=== PATIENT | female | born 1945 | race Caucasian/White ===

== ENCOUNTER 2016-10-24 22:06 | Observation (INO) | payer OTHER ==
[2016-10-24] MEDS ORDERED: NS 1,000 ML IV ONE (22:30)
--- NOTE | 2016-10-24 22:37 | EDPHY ---
H & P Stated Complaint: neuro symptoms onset 10/21; R hand, R foot, R eye Time Seen by Provider: 10/24/16 22:22 HPI/ROS: CHIEF COMPLAINT: Right hand weakness HISTORY OF PRESENT ILLNESS: The patient is a 70-year-old female who comes to the emergency department complaining of right hand weakness for the last 3 days. She states that it is very mild and she has some numbness in the 4th and 5th fingers. She states that it began abruptly and has been present ever since. She states she has trouble gripping things with her hand. Then today when she woke up at 7:00 a.m. she also noticed that she had some fuzzy vision in her right eye as well as some paresthesias in her right foot. She has not had any difficulty walking. No gait abnormalities or balance problems. No headache or dizziness. No chest pain or shortness of breath. She has a history of hypertension only and is on lisinopril. She states that her son is a neurologist. She did not come sooner because she thought it was arthritis. REVIEW OF SYSTEMS: Constitutional: denies: chills, fever, recent illness, recent injury EENTM: See HPI denies: double vision, nose congestion Respiratory: denies: cough, shortness of breath Cardiac: denies: chest pain, irregular heart rate, lightheadedness, palpitations Gastrointestinal/Abdominal: denies: abdominal pain, diarrhea, nausea, vomiting, blood streaked stools Genitourinary: denies: dysuria, frequency, hematuria, pain Musculoskeletal: denies: joint pain, muscle pain Skin: denies: lesions, rash, jaundice, bruising Neurological: See HPI Hematologic/Lymphatic: denies: blood clots, easy bleeding, easy bruising Immunologic/allergic: denies: HIV/AIDS, transplant - Physical Exam General Appearance: WD/WN, mild distress Eyes, Ears, Nose, Throat Exam: PERRL/EOMI, normal ENT inspection, pharynx normal Neck: non-tender, full range of motion, supple, normal inspection. No: stiff neck, tender lateral Cardiovascular/Chest: normal peripheral pulses, regular rate, rhythm Respiratory: chest non-tender, lungs clear, normal breath sounds. No: crackles , rhonchi Gastrointestinal/Abdominal: normal bowel sounds, non tender, soft Back Exam: normal inspection Extremity: normal range of motion, non-tender, normal inspection Mental Status: alert, oriented x 3 CN's Exam: normal hearing, normal speech, PERRL, normal eye position, normal gag reflex, normal pupil position, normal speech. No: facial asymmetry, facial droop, facial paresthesias, gaze palsy, tongue deviation to R, tongue deviation to L Coordination/Gait: normal finger to nose, normal gait Motor/Sensory: normal. Very slight pronator drift on the right, 5/5 strength in all extremities. Ambulates without difficulty. DTR: tricep (R): 2+, tricep (L): 2+, knee (R): 2+, knee (L): 2+ Skin Exam: warm/dry, normal color Lymphatic: no adenopathy Source: Patient Exam Limitations: No limitations - Personal History Current Tetanus/Diphtheria Vaccine: Yes - Medical/Surgical History Hx Asthma: No Hx Chronic Respiratory Disease: No Hx Diabetes: No Hx Cardiac Disease: No Hx Renal Disease: No Hx Cirrhosis: No Hx Alcoholism: No Hx HIV/AIDS: No Hx Splenectomy or Spleen Trauma: No Other PMH: PMHx: HTN, OA, Depression. PSHx: L knee replacement - Family History Significant Family History: No pertinent family hx - Social History Smoking Status: Never smoked Alcohol Use: Sober Drug Use: None Constitutional: Initial Vital Signs Heart Rate 90 10/24/16 22:10 Respiratory Rate 17 10/24/16 22:10 Blood Pressure 174/100 H 10/24/16 22:10 O2 Sat (%) 94 10/24/16 22:10 O2 Delivery Mode Room Air Allergies/Adverse Reactions: Penicillins Allergy (Verified 03/31/15 15:54) Unknown Sulfa (Sulfonamide Antibiotics) Allergy (Verified 03/31/15 15:54) Rash Home Medications: Medication Instructions Recorded Cholecalciferol Vit D3 [Vitamin D3 1,000 units PO MOWEFR 03/25/15 (*)] Lisinopril [Zestril 5 mg (*)] 5 mg PO DAILY 03/25/15 Multivitamins [Multivitamin (*)] 1 each PO DAILY 03/25/15 [place]-3 Fatty Acids [Fish Oil 1000 1,000 mg PO DAILY 03/25/15 mg (*)] Sertraline HCl [Zoloft 50mg (*)] 50 mg PO MOFR 03/25/15 Temazepam 15 mg PO HS 03/25/15 buPROPion XL [Wellbutrin 150mg XL] 300 mg PO DAILY 03/25/15 Acetaminophen [Tylenol 325mg (*)] 325 - 650 mg PO Q4 PRN #0 tab 04/15/15 Aspirin EC [Aspirin EC 81 mg (*)] 81 mg PO BID #28 tab 04/15/15 Ferrous Sulfate [Slow Fe 140 MG 140 mg PO DAILY #30 tab.er 04/15/15 (*)] Ondansetron Odt [Zofran Odt 4 mg 4 - 8 mg PO Q6 PRN #30 tab 04/15/15 (*)] oxyCODONE IR [Oxycodone Ir (*)] 5 - 15 mg PO Q3 PRN #0 tab 04/15/15 traMADol [Ultram 50 mg (*)] 100 mg PO BID #30 tab 04/15/15 Medical Decision Making - Diagnostics Imaging Results: Imaging Impressions Head CT 10/24/16 22:31 Impression: 1. Mild age-related atrophy. 2. No hemorrhage, mass effect, or definite acute peripheral infarct. Findings discussed with Williams Ramos M.D. at 23:39 hour, 10/24/2016. Head CTA 10/24/16 22:31 Impression: Normal CT angiogram of the neck. The vertebral arteries are relatively small in caliber bilaterally. There is normal variation of the [place] of [place] as detailed above. No evidence of thrombus or stenosis. Note: All calculations were performed using NASCET criteria. Findings discussed with Williams Ramos M.D. at 23:53 hour, 10/24/2016. Neck CTA 10/24/16 22:31 Impression: Normal CT angiogram of the neck. The vertebral arteries are relatively small in caliber bilaterally. There is normal variation of the [place] as detailed above. No evidence of thrombus or stenosis. Note: All calculations were performed using NASCET criteria. Findings discussed with Williams Ramos M.D. at 23:53 hour, 10/24/2016. Imaging: Discussed imaging studies w/ housecalls nurse Radiologist ED Course/Re-evaluation: Stroke alert not initiated because patient is not tPA candidate because of duration of symptoms and NIH stroke score of 1. Discussed the CT and lab results. Believe that the patient has had a very mild stroke. NIH stroke score 1 which has been unchanged for 3 days. I have consulted the hospitalist service who will admit. She would likely benefit from an MRI tomorrow and Neurology consult and rehabilitation consult. I spoke with Dr. Hernandez who will admit the medical service. Differential Diagnosis: Partial list of the Differential diagnosis considered include but were not limited to; CVA, neuropathy, and although unlikely based on the history and physical exam, I also considered glaucoma, infection, MS, Guillain-[place]. - Data Points Laboratory Results: Laboratory Results 10/24/16 20:40 10/24/16 20:40 10/24/16 10/24/16 10/24/16 20:40 20:40 20:40 WBC 5.07 10^3/uL 10^3/uL (3.80-9.50) RBC 4.66 10^6/uL 10^6/uL (4.18-5.33) Hgb 14.2 g/dL g/dL (12.6-16.3) Hct 40.8 % % (38.0-47.0) MCV 87.6 fL fL (81.5-99.8) MCH 30.5 pg pg (27.9-34.1) MCHC 34.8 g/dL g/dL (32.4-36.7) RDW 12.2 % % (11.5-15.2) Plt Count 229 10^3/uL 10^3/uL (150-400) MPV 9.9 fL fL (8.7-11.7) Neut % (Auto) 46.8 % % (39.3-74.2) Lymph % (Auto) 39.8 % % (15.0-45.0) [place] % (Auto) 7.7 % % (4.5-13.0) Eos % (Auto) 4.1 % % (0.6-7.6) Baso % (Auto) 1.4 % % (0.3-1.7) Nucleat RBC Rel Count 0.0 % % (0.0-0.2) Absolute Neuts (auto) 2.37 10^3/uL 10^3/uL (1.70-6.50) Absolute Lymphs (auto) 2.02 10^3/uL 10^3/uL (1.00-3.00) Absolute Monos (auto) 0.39 10^3/uL 10^3/uL (0.30-0.80) Absolute Eos (auto) 0.21 10^3/uL 10^3/uL (0.03-0.40) Absolute Basos (auto) 0.07 10^3/uL 10^3/uL (0.02-0.10) Absolute Nucleated RBC 0.00 10^3/uL 10^3/uL (0-0.01) Immature Gran % 0.2 % % (0.0-1.1) Immature Gran # 0.01 10^3/uL 10^3/uL (0.00-0.10) PT 12.0 SEC SEC (12.0-15.0) INR 0.90 (0.83-1.16) Sodium 137 mEq/L mEq/L (134-144) Potassium 3.9 mEq/L mEq/L (3.5-5.2) Chloride 103 mEq/L mEq/L (97-110) Carbon Dioxide 23 mEq/l mEq/l (22-31) Anion Gap 11 mEq/L mEq/L (8-16) BUN 15 mg/dL mg/dL (7-23) Creatinine 0.6 mg/dL mg/dL (0.6-1.0) Estimated GFR > 60 Glucose 96 mg/dL mg/dL (70-100) Calcium 10.0 mg/dL mg/dL (8.5-10.4) Medications Given: Discontinued Medications Sodium Chloride (Ns) 1,000 mls @ 0 mls/hr IV ONCE ONE PRN Reason: Wide Open Stop: 10/24/16 22:31 Last Admin: 10/24/16 22:46 Dose: 1,000 mls Departure - Departure Disposition: [facility] Acute Clinical Impression: Acute ischemic stroke Condition: Fair
[2016-10-24 22:53] LABS: % IMMATURE GRANULYOCYTES 0.2 % (0.0-1.1); ABSOLUTE IMMATURE GRANULOCYTES 0.01 10^3/uL (0.00-0.10); ADD DIFF? NO; ADD MORPH? NO; ADD SCAN? NO; ATYPICAL LYMPHOCYTE FLAG 10 (0-99); FRAGMENT RBC FLAG 0 (0-99); HEMATOCRIT 40.8 % (38.0-47.0); HEMOGLOBIN 14.2 g/dL (12.6-16.3); LEFT SHIFT FLG 0 (0-99); LIPEMIA HEMOLYSIS FLAG 90 (0-99); MEAN CELL HEMOGLOBIN 30.5 pg (27.9-34.1); MEAN CELL HEMOGLOBIN CONCENTR. 34.8 g/dL (32.4-36.7); MEAN CELL VOLUME 87.6 fL (81.5-99.8); MEAN PLATELET VOLUME 9.9 fL (8.7-11.7); PLATELET CLUMPS FLAG 0 (0-99); PLATELET COUNT 229 10^3/uL (150-400); RED BLOOD CELL COUNT 4.66 10^6/uL (4.18-5.33); RED CELL DISTRIBUTION WIDTH 12.2 % (11.5-15.2)
[2016-10-24] MEDS ORDERED: IOPAMIDOL (ISOVUE 370) 100 ML BTL IV ONE (22:59)
[2016-10-24 23:07] LABS: INR 0.9 (0.83-1.16)
[2016-10-24 23:09] LABS: ANION GAP 11 mEq/L (8-16); CARBON DIOXIDE 23 mEq/l (22-31); CHLORIDE 103 mEq/L (97-110); CREATININE 0.6 mg/dL (0.6-1.0); GLOMERULAR FILTRATION RATE > 60; GLUCOSE 96 mg/dL (70-100); POTASSIUM 3.9 mEq/L (3.5-5.2); SODIUM 137 mEq/L (134-144)
--- NOTE | 2016-10-25 01:27 | PDGENHP ---
History and Physical - Chief Complaint R hand weakness - History of Present Illness Patient is a 70 year old female with hypertension, osteoarthritis, depression who presents to the ED with complaint of R hand weakness, as well as R foot numbness. 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 At first she thought her symptoms were related to her arthritis and did not investigate this symptom further. This morning, she then woke up feeling slightly woozy and describes a transient episode of a disturbance/blurriness in her vision. This resolved within minutes. And then this evening, she also began feeling a paresthesia in her R foot, not associated with difficulty ambulating or trauma/fall. Given these constellation of symptoms, she called her son (who is a Neurologist) and he recommended she go to the ED for further evaluation. There was no associated headache, neck pain , dysarthria or dysphonia with any of her symptoms. She also denies any recent falls, fevers, chills, headache, chest pain, palpitations, abd pain, n/v/d or dysuria. She reports low exercise tolerance at baseline, but does walk once weekly. On arrival to the ED, patient was afebrile and hemodynamically stable. Labs, including cbc, bmp and coags were wnl. CT head without contrast did not show any acute abnormalities and CT angio head/neck were within normal limits. She was then admitted to the hospitalist service for further evaluation. History Information - Allergies/Home Medication List Allergies/Adverse Reactions: Penicillins Allergy (Verified 03/31/15 15:54) Unknown Sulfa (Sulfonamide Antibiotics) Allergy (Verified 03/31/15 15:54) Rash Home Medications: Cholecalciferol Vit D3 [Vitamin D3 (*)] 1,000 units PO MOWEFR 03/25/15 [Last Taken 04/12/15] Lisinopril [Zestril 5 mg (*)] 5 mg PO DAILY 03/25/15 [Last Taken 04/12/15] Multivitamins [Multivitamin (*)] 1 each PO DAILY 03/25/15 [Last Taken 04/12/15] [place]-3 Fatty Acids [Fish Oil 1000 mg (*)] 1,000 mg PO DAILY 03/25/15 [Last Taken 04/12/15] Sertraline HCl [Zoloft 50mg (*)] 50 mg PO MOFR 03/25/15 [Last Taken 04/13/15 05: 00] Temazepam 15 mg PO HS 03/25/15 [Last Taken 04/12/15] buPROPion XL [Wellbutrin 150mg XL] 300 mg PO DAILY 03/25/15 [Last Taken 04/12/15 ] I have personally reviewed and updated: family history, medical history, social history, surgical history - Past Medical History Additional medical history: hypertension. osteoarthritis. depression - Surgical History Additional surgical history: bilateral carpal tunnel. . 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 Review of Systems ROS: 10pt was reviewed & negative except for what was stated in HPI & below Physical Exam Temp Pulse Resp BP Pulse Ox 90 18 137/84 H 94 10/25/16 00:00 10/25/16 00:00 10/25/16 00:00 10/25/16 00:00 Constitutional: no apparent distress, appears nourished, not in pain Eyes: PERRL, anicteric sclera, EOMI Ears, Nose, Mouth, Throat: moist mucous membranes, hearing normal, ears appear normal, no oral mucosal ulcers Cardiovascular: regular rate and rhythym, no murmur, rub, or gallop, pulses symmetric bilaterally, No JVD, No edema Peripheral Pulses: 2+: dorsalis-pedis (R), dorsalis-pedis (L) Respiratory: no respiratory distress, no rales or rhonchi, clear to auscultation Gastrointestinal: normoactive bowel sounds, soft, non-tender abdomen, no palpable masses, No tenderness, No guarding, No rebound Genitourinary: no bladder fullness, no bladder tenderness Skin: warm, normal color, no rashes or abrasions, no fluctuance, no induration, No mottled Musculoskeletal: full muscle strength, no muscle tenderness, normal joint ROM, no joint effusions Neurologic: AAOx3, sensation intact bilaterally, pronator drift (very slight drift in R upper extremity), CN II-XII Intact, other (isometric strength 5/5 in all extremities), No facial droop Psychiatric: interacting appropriately, not anxious, not encephalopathic, thought process linear Lab Data & Imaging Review 10/24/16 20:40 10/24/16 20:40 WBC 5.07 10^3/uL (3.80-9.50) 10/24/16 20:40 RBC 4.66 10^6/uL (4.18-5.33) 10/24/16 20:40 Hgb 14.2 g/dL (12.6-16.3) 10/24/16 20:40 Hct 40.8 % (38.0-47.0) 10/24/16 20:40 MCV 87.6 fL (81.5-99.8) 10/24/16 20:40 MCH 30.5 pg (27.9-34.1) 10/24/16 20:40 MCHC 34.8 g/dL (32.4-36.7) 10/24/16 20:40 RDW 12.2 % (11.5-15.2) 10/24/16 20:40 Plt Count 229 10^3/uL (150-400) 10/24/16 20:40 MPV 9.9 fL (8.7-11.7) 10/24/16 20:40 Neut % (Auto) 46.8 % (39.3-74.2) 10/24/16 20:40 Lymph % (Auto) 39.8 % (15.0-45.0) 10/24/16 20:40 [place] % (Auto) 7.7 % (4.5-13.0) 10/24/16 20:40 Eos % (Auto) 4.1 % (0.6-7.6) 10/24/16 20:40 Baso % (Auto) 1.4 % (0.3-1.7) 10/24/16 20:40 Nucleat RBC Rel Count 0.0 % (0.0-0.2) 10/24/16 20:40 Absolute Neuts (auto) 2.37 10^3/uL (1.70-6.50) 10/24/16 20:40 Absolute Lymphs (auto) 2.02 10^3/uL (1.00-3.00) 10/24/16 20:40 Absolute Monos (auto) 0.39 10^3/uL (0.30-0.80) 10/24/16 20:40 Absolute Eos (auto) 0.21 10^3/uL (0.03-0.40) 10/24/16 20:40 Absolute Basos (auto) 0.07 10^3/uL (0.02-0.10) 10/24/16 20:40 Absolute Nucleated RBC 0.00 10^3/uL (0-0.01) 10/24/16 20:40 Immature Gran % 0.2 % (0.0-1.1) 10/24/16 20:40 Immature Gran # 0.01 10^3/uL (0.00-0.10) 10/24/16 20:40 PT 12.0 SEC (12.0-15.0) 10/24/16 20:40 INR 0.90 (0.83-1.16) 10/24/16 20:40 Sodium 137 mEq/L (134-144) 10/24/16 20:40 Potassium 3.9 mEq/L (3.5-5.2) 10/24/16 20:40 Chloride 103 mEq/L (97-110) 10/24/16 20:40 Carbon Dioxide 23 mEq/l (22-31) 10/24/16 20:40 Anion Gap 11 mEq/L (8-16) 10/24/16 20:40 BUN 15 mg/dL (7-23) 10/24/16 20:40 Creatinine 0.6 mg/dL (0.6-1.0) 10/24/16 20:40 Estimated GFR > 60 10/24/16 20:40 Glucose 96 mg/dL (70-100) 10/24/16 20:40 Calcium 10.0 mg/dL (8.5-10.4) 10/24/16 20:40 Visualized and Interpreted imaging results: Yes Interpretation: CT Head wo contrast: no acute intracranial abnormalities, no hemorrhage, infarct or edema. CT angio head/neck: normal vasculature of head/ neck Assessment & Plan Assessment: Patient is a 70 year old female with HTN, OA, depression who presents to the ED with 3 days of decreased violin mechanic strength in her R hand, as well as new paresthesias in her R lower extremity. Symptoms are concerning for a subacute CVA vs TIA, initial ED work up is unrevealing. Plan: # R hand weakness, RLE paresthesia Symptoms are concerning for possible CVA vs TIAs, differential also includes peripheral neuropathy. She is not a candidate for tPA as symptoms have been present for 3 days and her NIH stroke scale is 0-1 on presentation (faint RUE drift). CT head without contrast, CT angio head/neck do not reveal any acute pathology. Will check EKG, TTE, MRI brain, monitor on telemetry overnight. Will also check lipid panel, TSH, monitor neuro checks overnight and obtain neuro consult in am. # chronic hypertension BP slightly elevated on presentation. Will allow for permissive hypertension in setting of possible CVA. # chronic depression Stable, confirm and continue home meds. # chronic osteoarthritis No acute pain, will confirm and cont home pain meds. # dispo: admit to observation for CVA work up # gen: Cardiac diet Full code
--- NOTE | 2016-10-25 01:39 | CPEKG ---
Heart Rate: 85 RR Interval: 706 P-R Interval: 184 QRSD Interval: 76 QT Interval: 380 QTC Interval: 452 P Stirling: 70 QRS Stirling: -9 T Wave Stir[place]: 52 EKG Severity - ABNORMAL ECG - EKG Impression: SINUS RHYTHM EKG Impression: PROBABLE LEFT ATRIAL ABNORMALITY EKG Impression: PROBABLE LEFT VENTRICULAR HYPERTROPHY EKG Impression: ANTERIOR Q WAVES, POSSIBLY DUE TO LVH EKG Impression: LEFTWARD AXIS Electronically Signed By: Gael Johnson 28-Oct-2016 09:16:02
[2016-10-25 05:54] LABS: ANION GAP 11 mEq/L (8-16); CARBON DIOXIDE 22 mEq/l (22-31); CHLORIDE 107 mEq/L (97-110); CHOLESTEROL 197 mg/dL (140-220); CHOLESTEROL/HDL RATIO 2.77 RATIO (1.00-4.44); CREATININE 0.5 mg/dL (0.6-1.0); GLOMERULAR FILTRATION RATE > 60; GLUCOSE 88 mg/dL (70-100); HIGH DENSITY LIPOPROTEIN 71 mg/dL (40-85); LDL/HDL RATIO 1.39 RATIO (1.00-3.22); LOW DENSITY LIPOPROTEIN 99 mg/dL (80-100); NON-HIGH DENSITY LIPOPROTEIN 126 mg/dL (90-129); POTASSIUM 4.5 mEq/L (3.5-5.2); SODIUM 140 mEq/L (134-144); SPECIMEN HEMOLYSIS 107; TRIGLYCERIDE 135 mg/dL (35-135); VERY LOW DENSITY LIPOPROTEINS 27 mg/dL (8-25)
[2016-10-25 08:32] VITALS: BP 157/89; PULSE 73; RESP 14; TEMP 98.1; O2SAT 94
--- NOTE | 2016-10-25 08:46 | PDCONSULT ---
[facility] Note: HOSPITAL NEUROLOGY CONSULT REQUESTING: Arianna Hernandez DO REASON: hand weakness, foot numbness HPI: This is a 70-year-old right-handed woman with a history of hypertension, osteoarthritis and depression who presents to our facility for new right hand weakness, right foot numbness and she also mentions visual acuity disturbance in the right eye. Patient states 3 days prior to presentation she started to notice that the right hand seemed weaker than usual. She was having difficulty with fine motor tasks such as buttoning clothing. She thought this may be related to her arthritis, so she delayed evaluation. One day prior to presentation, the patient awoke feeling lightheaded. She states that this sensation of lightheadedness persisted throughout the day. She was also noting that the vision out of the right eye only seemed less sharp than usual. She described the symptoms to her family, and they encouraged her to go to the emergency department. She states that the weakness in her hand and the numbness in the right foot have resolved, but she still feels that the visual acuity of the right eye is not as sharp. She was not experiencing any chest pain, shortness of breath or palpitations during any of these events. She has no prior history of stroke or TIA. She was not experiencing any speech/language disturbance, vestibular symptoms/dizziness, gait disturbance. She did endorse a mild bifrontal headache on the morning she awoke with a lightheadedness. She has had no fevers or meningeal signs/symptoms. No nausea, photophobia or phonophobia. No recent illnesses and no recent changes in her medications. When she presented to our emergency department, she had a CT of the head as well as CT angiogram of the head and neck which did not reveal any acute pathology. She was not deemed a thrombolytic or interventional candidate due to symptoms being of an extended duration. Her general medical evaluation including metabolic and infectious screening have been unrevealing. ROS: As per the HPI, otherwise a complete 12 point ROS was performed and is negative ALLERGIES AND MEDS: As recorded in the EMR - reviewed and reconciled PFSH: As per the intake H&P by Dr. Hernandez from yesteray EXAM: VS reviewed in EMR GEN: WDWN laying in NAD HEENT: NCAT, sclera anicteric, conjunctiva not injected, MMM, oropharynx clear, no scalp tenderness NECK: supple, nontender, no meningismus CV: RRR s1 s2 wo m/r/c/g. Carotid pulses 2+ wo bruit EXT: hands show some slight ulnar deviation of the fingers NEURO: (NIHSS 1 - RUE drift) MS: awake, alert, oriented to all spheres. Speech nondysarthric. No language disturbance. Follows commands. Attends to both sides. Recent/remote memory grossly intact. Mood euthymic. Good fund of knowledge. CN: pupils 3mm round and reactive. Fundi with sharp discs. VFF. Primary gaze centered. Full ocular motility. VA 20/30 -1 OU (corrected). Facial sensation preserved. Face symmetric. Hearing grossly intact to finger rub. Palatoglossal movements intact. Shoulder shrug and head turn strong. MOTOR: normal bulk/tone. No adventitial movements. Trace weakness in the proximal muscle groups symmetrically, but otherwise full power throughout. Some very subtle drift of the RUE without pronation. SENSORY: LT/PP intact throughout and symmetric. No extinction. COORD: no ataxia FN/HS. Akbar preserved. REFLEX: plantars down. No clonus. Absent ankle jerks, other DTRs 1/4. GAIT: deferred to PT safety evaluation DATA REVIEW: Labs reviewed in EMR PERSONALLY INTERPRETED RESULTS AND DATA: CT head wo - mild global volume loss, no acute pathology/changes CTA head/neck - patent intracranial/extracranial vasculature IMPRESSION AND RECOMMENDATIONS: // RIGHT HAND WEAKNESS - RESOLVED // RIGHT FOOT NUMBNESS - RESOLVED // RIGHT EYE VISUAL ACUITY DISTURBANCE Patient with 3 days of right hand weakness, 1 day of right foot numbness and 1 day of right eye subjective VA disturbance and 1 day of lightheadedness. Doesn' t fit one single localization, especially with the monocular visual disturbance (subjective, not objectively apparent on exam). Could represent a multifocal process from proximal cardioembolism (? lightheadedness from arrhythmia), or perhaps another infiltrative multifocal process. Given duration of symptoms, we should be able to visualize acute ischemic change on MRI if this is indeed a vascular phenomenon. But, given the progressive nature of symptoms and the lack of single localization, this could represent a nonneurologic phenomenon. - MRI brain wo - TTE - cont ASA 81mg for now - cont atorvastatin for now - maintain normotension - lipid panel pending - monitor on tele - metabolic/cardiac/infectious screening and supportive measures per primary team - cont routine neuro checks and vitals monitoring
[2016-10-25] MEDS ORDERED: ATORVASTATIN CALCIUM 40 MG TAB PO SCH (09:00)
[2016-10-25] MEDS ORDERED: ASPIRIN 81 MG CHEWABLE TAB PO SCH (09:00)
--- NOTE | 2016-10-25 10:49 | ECHO ---
[id number] + + [address] : : [place] [address] : : [phone] + + Adult Echocardiographic Report + ------+ :Name: LINDA ARROYO SStudy Date: 10/25/2016 08:11 AM : : Hospital Admission Number: [id number] Locatio n: 143: :: 1945 Gender: Female Height: 62 in : :Age: 70 yrs Race: WH Weight: 150 lb : :Reason For Study: source of emboli : : BSA: 1.7 meters 2 : :History: tia vs cva : + ------+ MMode/2D Measurements \T\ Calculations IVSd: 0.70 cm RVDd: 2.4 cm FS: 44.7 % Ao root diam: LVPWd: 0.86 cm LVIDd: 3.2 cm EDV(Teich): 2.3 cm LVIDs: 1.8 cm 41.6 ml ESV(Teich): 9.4 ml EF(Teich): 77.3 % LVLd ap4: 8.1 cm SV(MOD-sp4): EDV(MOD-sp4): 62.0 ml 83.0 ml LVLs ap4: 6.4 cm ESV(MOD-sp4): 21.0 ml EF(MOD-sp4): 74.7 % Normal Measurement Values: + + :LVIDd (3.5-5.7cm) IVSd (0.6-1.1cm) LVPWd (0.6-1.1cm) Aortic Root (2.0-3.7cm)Left Atrium (1.5-4.0cm): :LV Vol(d) (76-115ml) LV Vol(s) (29-48ml) Ejec Fraction (50-65%)PV Hayder (0.6- 1.2m/s) TV Hayder (0.4-1.0m/s) : :MV E Hayder (0.8-1.0m/s)MV A Hayder (0.3-1.0m/s)LVOT Hayder (0.7-1.2m/s) Asc Ao Hayder ( 0.9-1.8m/s) : + + Doppler Measurements \T\ Calculations MV E max hayder: Ao V2 max: LV V1 max: PA V2 max: 56.3 cm/sec 103.0 cm/sec 98.7 cm/sec 110.0 cm/sec MV A max hayder: Ao max P.2 mmHgLV V1 max PG: PA max P.8 mmHg 88.4 cm/sec 3.9 mmHg MV E/A: 0.64 MV dec time: 0.25 sec Left Ventricle The left ventricle is normal in size and function. There is normal left ventricular wall thickness. Ejection Fraction = 75%. The left ventricular ejection fraction is calculated at 77.3 %. There is Doppler evidence for diastolic dysfunction. No regional wall motion abnormalities noted. Right Ventricle The right ventricle is normal in size and function. Atria The left atrial size is normal. Right atrial size is normal. Mitral Valve The mitral valve is normal in structure and function. There is no mitral valve stenosis. There is trace mitral regurgitation. Tricuspid Valve The tricuspid valve is normal in structure and function. There is no tricuspid stenosis. No tricuspid regurgitation. Aortic Valve The aortic valve is normal in structure and function. The aortic valve is trileaflet. There is no aortic stenosis. There is no aortic insufficiency. Pulmonic Valve The pulmonic valve is not well visualized. Great Vessels The aortic root is normal size. Pericardium/Pleural There is no pericardial effusion. Conclusion A two-dimensional transthoracic echocardiogram with M-mode and Doppler was performed. There is no obvious source of embolus identified. If one is highly clinically suspected, then transesophageal echocardiography should be considered. (1) Left ventricular systolic ejection fraction was normal (75%) - normal wall motion (2) No left ventricular hypertrophy (3) Diastolic dysfuntion was present (4) Normal right ventricular size and function (5) Normal atrial dimensions (6) Physiologic mitral regurgitation (7) Trileaflet aortic valve without sclerosis or appreciable insufficiency (8) Grossly normal tricuspid valve - RVSP was not assessed (poor windows) (9) Poor visualization of the pulmonic valve (10) No comparison echocardiograms Final Reading Physician: Rema Riggins signed on 10/25/2016 10:47 AM Ordering Physician: Arianna Hernandez Performed By: Mattie Turner
--- NOTE | 2016-10-25 13:55 | GDS ---
[f rep st] DISCHARGE SUMMARY DISCHARGE DIAGNOSES: Resolved right hand weakness, right foot numbness and right eye visual disturb ance of unclear etiology. CONSULTANTS: Dr. Williams De León, neurology. HOSPITAL COURSE BY PROBLEM: Right hand weakness, right foot numbness, right eye visual disturbance: The patient was placed on observation due to concerns for CVA versus TIA. A CTA of the head and n marcela was done, as well as a brain MRI, that did not reveal any signs of stroke or vascular disturbanc e. An echocardiogram was done, that also did not demonstrate any cardiogenic source for her symptom s. Upon discussion with Dr. De León, the distribution of her symptoms would be atypical for any vascula r distribution. At the time of discharge, her symptoms have resolved. I suspect her right-sided ar m and leg symptoms could possibly be due to compression neuropathy from the position in which she wa s sleeping. PHYSICAL EXAMINATION: VITAL SIGNS: On day of discharge, blood pressure 157/89, pulse of 73, respir atory rate 14, O2 saturation 94% on room air. Temperature afebrile. GENERAL: No acute distress. HEART: S1, S2. LUNGS: Clear. ABDOMEN: Soft. EXTREMITIES: No edema. NEUROLOGIC: Cranial nerves 2-12 grossly intact. No focal motor or sensory deficits. There is no pronator drift. Muscle stre ngth 5/5 bilateral flexion and extension in the upper extremity. Value Analysis Coordinator strength is symmetric and 5/5 . DISCHARGE MEDICATIONS: Please refer to discharge medication reconciliation in [facility] for details. DISCHARGE INSTRUCTIONS: The patient will be discharged from the hospital where she should follow up with her primary care provider in 1-2 weeks for routine hospital followup. She should continue to have monitoring of her blood pressure to ensure she is at goal. If she continues to have symptoms, it would be reasonable for her to have a Holter monitor to ensure that she is not having any cardiac arrhythmias possibly contributing to her lightheadedness. /[id number]/MODL
== END 2016-10-25 14:35 | disposition home or self-care (01) ==
LOC: F1N 10-25 01:45
PROVIDERS: ADMIT Internal Medicine; ATTEND Family Medicine
DX: M62.81 Muscle weakness (generalized) (principal); R20.0 Anesthesia of skin; I10 Essential (primary) hypertension
CPT/HCPCS: 70450; 70496; 70498; 70551; 93005; 93306; G0378; Q9967

== ENCOUNTER → 2016-12-08 | Outpatient (CLI) | payer OTHER | LOC: FIMAGING 06:52 | PROVIDERS: ATTEND Family Medicine | DX: R29.898 Other symptoms and signs involving the musculoskeletal system (principal); R20.0 Anesthesia of skin; M54.2 Cervicalgia; M50.30 Other cervical disc degeneration, unspecified cervical region ==

== ENCOUNTER → 2017-05-04 | Outpatient (CLI) | payer OTHER | LOC: FIMAGING 11:10 | PROVIDERS: ATTEND Family Medicine | DX: Z12.31 Encounter for screening mammogram for malignant neoplasm of breast (principal) | CPT/HCPCS: G0202 ==

== ENCOUNTER → 2018-01-22 | Outpatient (CLI) | payer OTHER | LOC: BHFA 14:00 | PROVIDERS: ATTEND Internal Medicine Cardiovascular Disease | DX: Z01.810 Encounter for preprocedural cardiovascular examination (principal); R01.1 Cardiac murmur, unspecified ==